=== PATIENT | female | born 1950 | race Caucasian/White ===

== ENCOUNTER 2019-12-31 07:12 | Outpatient (NON) | payer MEDICARE, OTHER, SELFPAY ==
[2019-12-31 23:09] LABS: SARS-CoV-2 RNA PCR Negative
== END 2019-12-31 07:13 ==
PROVIDERS: PCP Family Medicine; Visit Provider Family Medicine
DX: J02.9 Acute pharyngitis, unspecified (principal); Z20.828 Contact with and (suspected) exposure to other viral communicable diseases
CPT/HCPCS: 87635; C9803; U0003

== ENCOUNTER 2020-02-24 07:28 | Outpatient (NON) | payer MEDICARE, OTHER, SELFPAY ==
[2020-02-24 17:23] LABS: SARS-CoV-2 RNA PCR Negative
== END 2020-02-24 07:29 ==
LOC: ANHCOVIDDT 07:30
PROVIDERS: PCP Family Medicine; Visit Provider Family Medicine
DX: Z20.828 Contact with and (suspected) exposure to other viral communicable diseases (principal); J02.9 Acute pharyngitis, unspecified
CPT/HCPCS: 87635; C9803; U0003

== ENCOUNTER → 2021-05-07 00:43 | Outpatient (CLI) | payer MEDICARE, OTHER, SELFPAY ==
[2021-05-08 10:57] LABS: SARS-CoV-2 RNA PCR Negative
== END ==
PROVIDERS: PCP Family Medicine; Visit Provider Family Medicine
DX: R68.89 Other general symptoms and signs (principal); Z20.822 Contact with and (suspected) exposure to COVID-19
CPT/HCPCS: C9803; U0003; U0005

== ENCOUNTER 2021-07-05 17:09 | Emergency (ER) | payer MEDICARE, OTHER, SELFPAY ==
--- NOTE | ~2021-07-05 | XR_ITS ---
[id number]_CR DATE: 07/05/2021 17:48 INDICATION: Fall 5 days ago. Right rib pain TECHNIQUE: PA chest. 3 views of right ribs. COMPARISON: None FINDINGS: Normal heart size. Is aortic arch calcification. No hilar or mediastinal enlargement. No pu lmonary infiltrate or consolidation, pleural effusion or pulmonary vascular congestion or pneumothora x. Old fracture deformity at the proximal left humerus. Diffuse osteopenia. Degenerative change at the a cromioclavicular joints. Osteoarthritic change at the glenohumeral joints. Scoliosis and degenerative change of the thoracic spine. No displaced right rib fractures evident. No bone destruction is noted. IMPRESSION: No displaced rib fractures are noted. Diffuse osteopenia No active cardiopulmonary disease Reviewed, dictated and finalized at Location [facility]. Reviewed, dictated and finalized at location A.
[2021-07-05 17:22] VITALS: BP 118/68; PULSE 97; RESP 24; TEMP 36.6; O2SAT 98
--- NOTE | 2021-07-05 17:22 | ED.BACK ---
HPI - Back Pain/Injury General Chief Complaint: Back Pain/Injury Stated Complaint: Back and Side Pain Due to Fall Time Seen by Provider: 07/05/21 17:22 Source: patient Mode of arrival: ambulatory Limitations: no limitations History of Present Illness HPI Narrative: 71-year-old female presented for complaint of right sided chest, rib, and scapular pain after injury 5 days ago. She states she tripped in a parking lot and landed on the right side. Has had intermittent right sided pain since then. Pain is described as sharp and tender, worse with taking deep breaths and any movements. 0 pain at rest. Taking meloxicam, Tylenol, and Voltaren gel. Denies LOC. Denies cp, sob, hemoptysis, palpitations, dizziness, n/v/d. Hx cholecystectomy, appendectomy, hysterectomy 2/2 cancer. Related Data Home Medications Medication Instructions Recorded Confirmed calcium carbonate 500 mg calcium 500 mg PO DAILY 03/03/19 10/31/20 (1,250 mg) tablet cyanocobalamin (vitamin B-12) 1,000 mcg PO DAILY 03/03/19 10/31/20 1,000 mcg capsule metoprolol succinate 25 mg 25 mg PO DAILY 03/03/19 10/31/20 tablet,extended release 24 hr multivitamin 1 tablet PO DAILY 03/03/19 10/31/20 cholecalciferol (vitamin D3) 25 2,000 unit PO DAILY cap 11/16/19 10/31/20 mcg (1,000 unit) capsule meloxicam 15 mg PO DAILY PRN 07/05/21 07/05/21 Allergies Allergy/AdvReac Type Severity Reaction Status Date / Time No Known Allergies Allergy Verified 07/05/21 17:12 Review of Systems Review of Systems: CONSTITUTIONAL: Denies body aches, fever, chills, or sweats. EYES: Denies visual changes, redness, or discharge. ENT: Denies rhinorrhea, congestion, sore throat, or otalgia. CARDIOVASCULAR: Denies chest pain, palpitations, or edema. RESPIRATORY: Denies cough or dyspnea. GASTROINTESTINAL: Denies abdominal pain, nausea, vomiting, or diarrhea. GENITOURINARY: Denies dysuria or hematuria. SKIN: Denies rash, itching, or wounds. MUSCULOSKELETAL: Reports right side/back pain NEUROLOGIC: Denies headache, numbness, tingling, or weakness. PSYCH: Denies depression or anxiety. All systems reviewed & are unremarkable except as noted in HPI and below PMFSH Past Medical History Medical History Abdominal pain Candidiasis of breast Chronic anxiety Chronic depression Chronic low back pain without sciatica Eczema Encounter for screening for other viral diseases Exposure to COVID-19 virus Fibromyalgia Morbid obesity with BMI of 45.0-49.9, adult Pruritus Seasonal allergic rhinitis Sore throat COVID test 05/07/2021 was negative Tremor Family History Family History Sibling Cerebrovascular accident, Onset Age: 62 Father Family history of heart disease in male family member before age 55 Family history of cardiovascular disease, Onset Age: 85 Mother Family history of chronic obstructive pulmonary disease, Onset Age: 84 Other Family history of arthritis Family history of diabetes mellitus in first degree relative Family history of malignant neoplasm Social History Social History Smoking status: Never smoker Alcohol intake: never Comments At time of signature, I have reviewed and agree with nursing past medical, surgical, social and family history unless otherwise noted. Please see nursing chart for further information. There is no relevant family history pertinent to the presenting complaint Exam Narrative: GENERAL: appears in pain with ambulation, in no acute distress. HEAD: Normocephalic, atraumatic. EYES: EOMI. No redness or drainage. Conjunctivae normal. ENT: Mucous membranes pink and moist. No rhinorrhea. TMs normal bilaterally. Throat normal. Uvula midline. NECK: Normal AROM. Supple. No lymphadenopathy. CHEST: No respiratory distress. Lety
[2021-07-05 17:31] VITALS: BP 118/68; PULSE 97; RESP 24; TEMP 36.6; O2SAT 98
== END 2021-07-05 18:32 | disposition home or self-care (01) ==
PROVIDERS: Emergency Provider Nurse Practitioner Family; PCP Family Medicine
DX: R07.89 Other chest pain (principal); R07.81 Pleurodynia; M25.511 Pain in right shoulder; M54.9 Dorsalgia, unspecified; M79.7 Fibromyalgia; E66.01 Morbid (severe) obesity due to excess calories; Z68.41 Body mass index [BMI] 40.0-44.9, adult; Z85.43 Personal history of malignant neoplasm of ovary
CPT/HCPCS: 71101; 99213; G0463

== ENCOUNTER 2022-09-19 14:18 | Outpatient (CLI) | payer MEDICARE, OTHER, SELFPAY ==
--- NOTE | ~2022-09-19 | MM_ITS ---
EXAMINATION: MM screening argelia BI w joseph HISTORY: Screening mammogram TECHNIQUE: Craniocaudal and mediolateral oblique 3-D tomosynthesis images were obtained and synthetic bilateral rotated lateral CC views. 2-D images were generated. CAD analysis was submitted and interp reted. COMPARISON: 01/09/2011 bilateral screening mammogram BREAST PARENCHYMAL COMPOSITION: FINDINGS: Scattered bilateral benign calcifications. There is no evidence of suspicious mass, calcifi cation, or architectural distortion to suggest malignancy in either breast. There has been no suspici ous interval change. IMPRESSION: 1. No mammographic evidence of malignancy. 2. Recommend routine screening mammography in one year. BI-RADS Category 2: Benign finding(s). Reviewed, dictated and finalized at location A.
== END 2022-09-19 14:19 | disposition home or self-care (01) ==
PROVIDERS: PCP Family Medicine; Visit Provider Family Medicine
DX: Z12.31 Encounter for screening mammogram for malignant neoplasm of breast (principal)
CPT/HCPCS: 77063; 77067

== ENCOUNTER 2023-01-24 08:52 | Emergency (ER) | payer MEDICARE, OTHER, SELFPAY ==
--- NOTE | ~2023-01-24 | XR_ITS ---
XR ankle RT min 3V DATE: 01/24/2023 09:15 INDICATION: Injury this morning. Ankle pain. TECHNIQUE: 4 views COMPARISON: None FINDINGS: There is a linear oblique fracture of the lateral malleolus with one cortical width lateral displacement. No other fracture or dislocation of the ankle or disruption of the ankle mortise is detected. Diffuse osteopenia. There is extensive soft tissue calcification along the distal Achilles tendon and prominent plantar a nd posterior calcaneal enthesopathy. There is prominent calcification of the anterior and particularl y posterior tibial arteries. There is soft tissue calcifications of the lower leg. IMPRESSION: 1 cortical width lateral displacement of linear oblique fracture of lateral malleolus Reviewed, dictated and finalized at location [facility].
--- NOTE | 2023-01-24 08:54 | ED.GENADULT ---
HPI - General Adult General Chief complaint: Extremity Injury, Lower Stated complaint: Rt Ankle Pain Time Seen by Provider: 01/24/23 09:10 Source: patient, RN notes reviewed and old records reviewed Mode of arrival: ambulatory Limitations: no limitations History of Present Illness HPI narrative: 72-year-old female presents to the [facility] with complaints right ankle pain. Patient reports that her dog leash got wrapped around her ankle this morning. Unable to bear weight. Swelling noted lateral malleolus. Positive pedal pulse. Sensation intact in all 5 toes, capillary refill under 2 sec Denies falling. No hitting head. Onset (ago): hour(s) Related Data Home Medications Medication Instructions Recorded Confirmed calcium carbonate 500 mg calcium 500 mg PO DAILY 03/03/19 01/24/23 (1,250 mg) tablet metoprolol succinate 25 mg 25 mg PO DAILY 03/03/19 01/24/23 tablet,extended release 24 hr multivitamin 1 tablet PO DAILY 03/03/19 01/24/23 cholecalciferol (vitamin D3) 25 2,000 unit PO DAILY 11/16/19 01/24/23 mcg (1,000 unit) capsule cyanocobalamin (vitamin B-12) 500 mcg PO DAILY 12/05/22 01/24/23 1,000 mcg capsule secukinumab 150 mg/mL subcutaneous 150 mg subcut WEEKLY 01/24/23 01/24/23 pen injector (Cosentyx Pen) Allergies Allergy/AdvReac Type Severity Reaction Status Date / Time No Known Allergies Allergy Verified 01/24/23 08:58 Review of Systems Review of Systems: All systems reviewed & are unremarkable except as noted in HPI and below Constitutional: Constitutional: Reports no additional constitutional complaints Eyes: Eyes: Reports no additional eye complaints ENT: Reports system reviewed and no additional complaints, except as documented Cardiovascular: Cardiovascular: Reports no additional cardiovascular complaints, Denies chest pain and Denies dyspnea Respiratory: Respiratory: Reports no additional respiratory complaints, Denies chest congestion, Denies cough and Denies dyspnea Gastrointestinal: Gastrointestinal: Reports no additional gastrointestinal complaints, Denies abdominal pain, Denies nausea and Denies vomiting Musculoskeletal: Musculoskeletal: Reports as per HPI and Reports arthralgias Integumentary/Breasts: Skin/Breast: Reports system reviewed and no additional complaints, except as docu Neurologic: Reports system reviewed and no additional complaints, except as documented Psychiatric: Psychiatric: Reports no additional psychiatric complaints Allergic/Immunologic: Allergic/Immunologic: Reports no additional allergic/immunologic complaints [facility] Past Medical History Medical History Abdominal pain Abnormal fasting glucose (10/01/21) fasting glucose 102 on 10/01/2021. Acute non-recurrent maxillary sinusitis At high risk for falls BMI 38.0-38.9,adult Candidiasis of breast Chronic anxiety Chronic depression Chronic low back pain without sciatica Chronic pain in left shoulder COVID-19 (03/15/22) tested positive 03/18/2022. Eczema Encounter for screening for other viral diseases Exposure to COVID-19 virus Fibromyalgia Morbid obesity with BMI of 40.0-44.9, adult Morbid obesity with BMI of 45.0-49.9, adult Obesity (BMI 30-39.9) Pruritus Screening for breast cancer Seasonal allergic rhinitis Sore throat COVID test 05/07/2021 was negative Tremor Type 2 diabetes mellitus with hyperglycemia Family History Family History Sibling Cerebrovascular accident, Onset Age: 62 Father Family history of heart disease in male family member before age 55 Family history of cardiovascular disease, Onset Age: 85 Mother Family history of chronic obstructive pulmonary disease, Onset Age: 84 Other Family history of arthritis Family history of diabetes mellitus in first degree relative Family history of malignant neoplasm Social History
[2023-01-24 09:04] VITALS: BP 108/63; PULSE 100; RESP 18; TEMP 36.3; O2SAT 99
== END 2023-01-24 09:47 | disposition home or self-care (01) ==
PROVIDERS: Emergency Provider Nurse Practitioner; PCP Family Medicine
DX: S82.61XA Displaced fracture of lateral malleolus of right fibula, initial encounter for closed fracture (principal); T14.90XA Injury, unspecified, initial encounter; F41.8 Other specified anxiety disorders; E66.01 Morbid (severe) obesity due to excess calories; Z68.36 Body mass index [BMI] 36.0-36.9, adult; E11.9 Type 2 diabetes mellitus without complications
CPT/HCPCS: 29515; 73610; 99214; G0463

== ENCOUNTER 2024-12-21 10:02 | Outpatient (CLI) | payer MEDICARE, OTHER, SELFPAY ==
--- OUTSIDE RECORDS SUMMARY | 2022-02-01 07:30 | XMS_ITS | Continuity of Care Document ---
Author Organization [facility] Address [address] [place] [address] Phone Care Team Providers Care Boring Machine Operator Production Name Role Phone Omkar DENG, [place] Unavailable Unavailabl e Allergies, Adverse Reactions, Alerts Substance Reaction Status Criticality No Known Allergies Active No Inform ation Procedures Procedure Date IMMUNIZATION ADMIN FLU VACC PRSV FREE INC ANTIG IMMUNIZATION ADMIN FLU VAC NO PRSV 4 VANE 3 YRS+ IMMUNIZATION ADMIN FLU VAC NO PRSV 4 VANE 3 YRS+ OFFICE/OUTPATIENT VISIT EST FLU VAC NO PRSV 4 VANE 3 YRS+ IMMUNIZATION ADMIN IMMUNIZATION ADMIN FLU VAC NO PRSV 4 VANE 3 YRS+ IMMUNIZATION ADMIN FLU VAC NO PRSV 4 VANE 3 YRS+ Advance Directives Directive Yes / No Effective Date File Name No Information Encounters Encounter Description Practice Location Reason(s) For Visit Diagnoses Date Provider Providers Copied on Encounter [facility], [address], [place], [address], [place] tel:[phone] [facility] No Information 2 Omkar Reynoso. [address], [place], [place], [id number]. tel:[phone] [facility], [address], [place], [address], [place] tel:[phone] [facility] No Information 0 Omkar Hamsa. [address], [place], [place], [id number]. tel:[phone] OFFICE/OUTPAT IENT VISIT EST [facility], [address], [place], [address], [place] tel:[phone] [facility] flu shot (chief complaint) Encounter for immunization 9 Omkar Hamsa. [address], [place], [place], [id number]. tel:[phone] [facility], [address], [place], [address], [place] tel:[phone] [facility] No Information 8 Omkar Hamsa. [address], [place], [place], [id number]. tel:[phone] [facility], [address], [place], [address], [place] tel:[phone] [facility] Encounter for immunization 7 Omkar Hamsa. [address], [place], [place], [id number]. tel:[phone] [facility], [address], [place], [address], [place] tel:[phone] [facility] No Information 6 Omkar Hamsa. [address], [place], [place], [id number]. tel:[phone] Family History Family Member Type Diagnosis Age At Onset No Information Immunizations Vaccine Date Status Comments Influenza, quadrivalent, hig h dose, injectable, split virus, preservative free, 0.7 mL dose, Fluzone High-Dose Quad administered Source: New Immuniza tion Record Influenza, injectable, quadrivalent, preservative free, 3 yrs or older administered Source: New Immuniz ation Record Influenza, injectable, quadrivalent, preservative free, 3 yrs or older administered Source: New Immuniz ation Record Influenza, injectable, quadrivalent, preservative free, 3 yrs or older administered Source: New Immuniz ation Record Influenza, injectable, quadrivalent, preservative free, 3 yrs or older administered Source: New Immuniz ation Record Influenza, injectable, quadrivalent, preservative free, 3 yrs or older administered Source: New Immuniz ation Record Payers Payer name Insurance type Covered republican ID Authoriza tion(s) Medicare E2 OT [id number] Medicare E2 OT [id number] Medicare E2 OT [id number] [facility] < [id number] OT [id number] Social History Type Description Quantity Date Captured Comments Sex Female Smoking Status No Information Chief Complaint And Reason For Visit No Information Reason For Referral Reason For Referral No Information History Of Present Illness Encounter Date Complaint History Of Prese nt Illness flu shot no new medical i ssues, no new meds, she is doing well and is here for her Flu shot Functional Status Date Functional Assessmen t No Information Instructions Date Instruction Additional Infor mation No Information Assessments Type Assessment Date No Information Patient Care Teams Name Effective Dates (start - stop) Status Members No Information
--- OUTSIDE RECORDS SUMMARY | 2024-08-12 07:54 | XMS_ITS | Continuity of Care Document ---
Author Name [facility] Organization [facility] Care Team Providers Care Social Director Name Role Phone [facility] Unavailable Unavailable Problems Combined list of problems from Department of Defense and [facility] facilities. It does not include entries that were removed or entered in error. Problem Status Onset Date Problem Type Date of Resolution Comments Source Diagnosis: ICD-10-CM Z63.79 Other stressful life events affecting family and household Active Diagnosis [facility] Encounters Combined list of: 1) Encounters from Department of Veterans Affairs facilities going backup to the last 18 months, not all [place] inpatient encounters are included; 2) Encounters from the Department of [facility] facilities going backup to 280 months. Location Location Details Encounter Type Encounter Number Reason For Visit Attending Provider ADM Date DC Date Status Disposition Source [facility] PT EDUCATION NOC INDIVID [id number] Diagnos is: ICD-10- CM Z63.79 Other stressf ul life events affecti ng family and househo ld TRAV SHAH 07/22 [facility] Outpatient Encounter [id number] FEMI COHEN 08/12 [facility] N
--- NOTE | 2024-12-21 10:20 | NEURO_ITS ---
Impression: # History of diabetes and cancer with chemotherapy. ? # Very mild bilateral Carpal Tunnel Syndrome. ? # Right Ulnar Neuropathy across the elbow. ? # Normal Needle/ EMG exam. Nerve Conduction Studies ?Stim Site NR Peak (ms) P-T Amp (?V) Site1 Site2 Delta-P (ms) Dist (cm) Michael (m/s) Left Median Anti Sensory (2-3nd Digit) Wrist ? 3.8 21.6 Wrist 2-3nd Digit 3.8 14.0 37 Wrist ? 3.6 21.4 Wrist 2-3nd Digit 3.8 14.0 37 Right Median Anti Sensory (2-3nd Digit) Wrist ? 4.0 18.2 Wrist 2-3nd Digit 4.0 14.0 35 Wrist ? 4.1 16.8 Wrist 2-3nd Digit 4.0 14.0 35 Left Radial Anti Sensory (Base 1st Digit) Wrist ? 2.1 13.2 Wrist Base 1st Digit 2.1 0.0 Right Radial Anti Sensory (Base 1st Digit) Wrist ? 2.6 11.9 Wrist Base 1st Digit 2.6 0.0 Left Ulnar Anti Sensory (5th Digit) Wrist ? 3.0 17.2 Wrist 5th Digit 3.0 14.0 47 Right Ulnar Anti Sensory (5th Digit) Wrist ? 3.0 16.2 Wrist 5th Digit 3.0 14.0 47 ?Stim Site NR Onset (ms) O-P Amp (mV) Site1 Site2 Delta-0 (ms) Dist (cm) Michael (m/s) Left Median Motor (Abd Poll Brev) Wrist ? 3.4 4.5 Elbow Wrist 4.6 27.0 59 Elbow ? 8.0 4.5 Right Median Motor (Abd Poll Brev) Wrist ? 4.3 3.4 Elbow Wrist 5.7 30.0 53 Elbow ? 10.0 3.7 Left Ulnar Motor (Abd Dig Minimi) Wrist ? 3.3 4.5 A Elbow Wrist 5.1 27.0 53 A Elbow ? 8.4 3.9 B Elbow Wrist 4.2 21.0 50 B Elbow ? 7.5 3.8 Right Ulnar Motor (Abd Dig Minimi) Wrist ? 3.0 4.2 A Elbow Wrist 6.1 28.0 46 A Elbow ? 9.1 4.1 B Elbow Wrist 4.1 19.0 46 B Elbow ? 7.1 3.0 F Wave Studies ?NR F-Lat (ms) L-R F-Lat (ms) Left Median (Mrkrs) (Abd Poll Brev) ? 26.08 3.59 Right Median (Mrkrs) (Abd Poll Brev) ? 29.67 3.59 Left Ulnar (Mrkrs) (Abd Dig Min) ? 28.36 0.55 Right Ulnar (Mrkrs) (Abd Dig Min) ? 28.91 0.55 Electromyography ?Side Muscle Nerve Root Ins Act Fibs Amp Dur Recrt Comment Right 1stDorInt Ulnar C8-T1 Nml Nml Nml Nml Nml Right Ext Indicis Radial (Post Int) C7-8 Nml Nml Nml Nml Nml Right Ext Digitorum Radial (Post Int) C7-8 Nml Nml Nml Nml Nml Right BrachioRad Radial C5-6 Nml Nml Nml Nml Nml Right PronatorTeres Median C6-7 Nml Nml Nml Nml Nml Right Abd Poll Brev Median C8-T1 Nml Nml Nml Nml Nml Right ABD Dig Min Ulnar C8-T1 Nml Nml Nml Nml Nml Right FlexPolLong Median (Ant Int) C7-8 Nml Nml Nml Nml Nml Right Abd Poll Long Radial (Post Int) C7-8 Nml Nml Nml Nml Nml Left 1stDorInt Ulnar C8-T1 Nml Nml Nml Nml Nml Left Ext Indicis Radial (Post Int) C7-8 Nml Nml Nml Nml Nml Left Ext Digitorum Radial (Post Int) C7-8 Nml Nml Nml Nml Nml Left BrachioRad Radial C5-6 Nml Nml Nml Nml Nml Left PronatorTeres Median C6-7 Nml Nml Nml Nml Nml Left Abd Poll Brev Median C8-T1 Nml Nml Nml Nml Nml Left ABD Dig Min Ulnar C8-T1 Nml Nml Nml Nml Nml Left FlexPolLong Median (Ant Int) C7-8 Nml Nml Nml Nml Nml Left Abd Poll Long Radial (Post Int) C7-8 Nml Nml Nml Nml Nml
--- OUTSIDE RECORDS SUMMARY | 2024-12-21 10:33 | XMS_ITS | Clinical Summary ---
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 Gender Identity Not on file Sexual Orientation Not on file Plan of Treatment Health Maintenance Due Date Last Done Comments Colorectal Cancer Screening Colonoscopy (10 Years) 1950 Hepatitis C 1968 DTaP, Tdap and Td Vaccines ( 1 - Tdap) 1969 Mammogram Screening 1990 Pneumococcal Vaccine: 50+ Ye ars (1 of 1 - PCV) 2000 Zoster Vaccines (1 of 2) 2000 Dexa Scan (General) 2015 COVID-19 Vaccine (2023-2 5 season) 2023 RSV Immunization or 60+ Years (1 - 1-dose 75+ series) 2025 Meningococcal B Vaccine Aged Out No l onger eligible based on patient's age to complete this topic Meningococcal Vaccine Aged Out No clover alf eligible based on patient's age to complete this topic RSV Immunizations Under 20 Months Aged Out No longer eligible based on patient's age to complete this topic
--- OUTSIDE RECORDS SUMMARY | 2024-12-21 10:33 | XMS_ITS | Clinical Summary ---
Author Organization [facility] Address [address] [place] [address] Care Team Providers Care Welding Teacher Name Role Phone Arthur Wei MD Primary Care Provider [phone] [phone] Allergies No known active allergies Medications multivitamin tablet tablet take 1 Tablet by oral route every day with food 0 0 6 Active cetirizine (ZyrTEC) 10 mg tablet take 1 tablet by oral route every day 0 0 6 Active cholecalciferol (VITAMIN D-3) 2,000 unit tablet Take 1 tablet (2,000 Units total) by mouth daily. 90 tablet 3 7 Active calcium carbonate-vitamin D2 500 mg(1,250mg) -200 unit tablet Take 4 tablets (2,000 mg total) by mouth 1200 mg tablet Pt taking 4 tablets daily Active diclofenac sodium (VOLTAREN) 1 % gel Apply topically 4 (four) times a day. Apply to knees and right wrist 100 g 11 8 Active cyanocobalamin (Vitamin B-12) 1,000 mcg sublingual tablet Take 0.5 tablets (500 mcg total) by mouth daily Active clobetasol (TEMOVATE) 0.05 % cream Apply topically 2 (two) times a day as needed (rash). Right 3rd knuckle and palm-psoriasis 30 g 1 9 Active clotrimazole 1 % cream APPLY TOPICALLY TO THE AFFECTED AREA TWICE DAILY 60 g 9 Active citalopram (CeleXA) 40 mg tablet TAKE 1 TABLET(40 MG) BY MOUTH DAILY 90 tablet 1 9 Active OneTouch Verio test strips strip USE EVERY DAY 3 Active OneTouch Verio Reflect Meter misc daily [address] (CYMBALTA) 60 mg capsule TAKE 1 CAPSULE BY MOUTH DAILY. CONTINUE CITALOPRAM 40 MG DAILY ALSO 3 Active OneTouch Delica Plus Lancet 30 gauge misc USE EVERY DAY 3 Active Ozempic 1 mg/dose (4 mg/3 mL) pen injector injection INJECT 1MG UNDER THE SKIN ONCE A WEEK 3 Active meloxicam (MOBIC) 15 mg tablet Take 1 tablet (15 mg total) by mouth daily as needed for pain 30 tablet 3 Active secukinumab (Cosentyx Pen) pen injector INJECT 150MG( 1 ML) UNDER THE SKIN EVERY 28 DAYS 1 mL 1 3 Active Additional Information Patient not taking.Reported on 05/24/2024 [facility] triamcinolone acetonide (/PROT ECT) topical lotion apply to affected area by external route 2 times a day hand External 2 for 30 8 Active Ozempic 2 mg/dose (8 mg/3 mL) pen injector injection 0.75 mL (2 mg total) 4 Active metoprolol XL (TOPROL-XL) 25 mg extended release tablet TAKE 1 TABLET(25 MG) BY MOUTH DAILY 90 tablet 3 5 Active Active Problems Problem Noted Date Diagnosed Date Sinus tachycardia 12/16/2019 Assessment & Plan (12/16/2019 10:43 AM CDT): Sinus tachycardia of uncertain cause. Will obtain a CBC, BMP, and proBNP. I advised her to follow up with Dr. Wei regarding this. Will forward results to T3 low in serum 08/18/2018 Assessment & Plan (08/18/2018 10:18 AM CDT): Recheck levels of t3. Acute sinusitis 08/18/2018 Assessment & Plan (08/18/2018 10:18 AM CDT): Rest, fluids, amoxcillin, Weight gain, abnormal 08/18/2018 Assessment & Plan (08/18/2018 10:30 AM CDT): Will recheck thyroid levels today- a prior visit with Cardiology TSH was normal T3 was slightly low. Encouraged patient to exercise and to low-carbohydrate diet Palpitations 07/17/2018 Assessment & Plan (08/18/2018 10:18 AM CDT): Stable will remain under the care of Dr. Cruz Assessment & Plan (07/17/2018 6:18 PM CDT): Palpitations are improved, and may have been mediated by stress. I am reluctant to increase her metoprolol unless this is an ongoing problem, in which case I would likely increased only to 37.5 mg daily to avoid hypotension. In the meantime, will obtain a CBC, TSH, and T4 to be sure that anemia and or thyroid abnormality are not contributing to her symptoms. High risk medication use 01/19/2018 Medicare annual wellness visit, subsequent 08/28 Assessment & Plan (08/28/2017 5:38 PM CDT): Patient here for annual Medicare wellness visit and for review of complete medical problem list. The patient has no cognitive or memory impairment. All the elements of the plan were completed as outlined by CMS. A copy of the prevention plan was given to the patient. I reviewed Medicare wellness questionnaire (other physicians involved in care, depression screen, advance directives), cognitive/memory, and functional assessment. And in [facility] progress notes. Reviewed and updated the complete problem list, medication list, family history, and immunization records with the patient. I provided preventive counseling and early detection interventions to the patient through health maintenance update and summary of today's visit. Sore throat 08/28/2017 Assessment & Plan (08/28/2017 5:39 PM CDT): Rapid strep test is negative. Suspect this is viral in etiology. Discussed local measures Exposure to hepatitis C 08/28/2017 Joint swelling 03/03/2017 Psoriatic arthritis 02/17/2017 Assessment & Plan (08/28/2017 5:38 PM CDT): Continue current medications as directed. Call if problems with medications. Psoriasis 02/17/2017 Assessment & Plan (02/17/2017 9:14 PM CDT): This is worsening- start hydrocortisone cream and follow up with dermatology in 1 month to start biologic agent RBBB 01/13/2017 Assessment & Plan (05/23/2024 4:02 PM CLINICAL REHAB SPECIALIST): Stable finding which does not require intervention at this time Assessment & Plan (05/19/2023 12:20 PM CLINICAL REHAB SPECIALIST): Stable finding which does not require intervention at this time Assessment & Plan (02/19/2022 3:44 PM CDT): Stable finding which does not require intervention at this time Assessment & Plan (12/15/2020 10:29 AM CDT): Previously assessed and found to be nonischemic. Assessment & Plan (12/16/2019 10:46 AM CDT): Longstanding right bundle branch block. Assessment & Plan (07/17/2018 6:18 PM CDT): Longstanding and nonischemic. Anxiety 10/14/2016 Assessment & Plan (02/17/2017 9:12 PM CDT): Intolerant of citalopram 40 mg per day, will reduce to 20 mg per day Assessment & Plan (10/14/2016 6:16 PM CDT): Dr. Newton in room to me patient and review of plan completed with physician will continue Xanax as needed and also increase her citalopram to 40 mg she will return if symptoms do not improve she is set up for physical with Dr. newton Morbid obesity with BMI of 40.0-44.9, adult /09/2016 Assessment & Plan (12/15/2020 10:30 AM CDT): Needs to lose weight through diet and exercise. Assessment & Plan (08/18/2018 10:17 AM CDT): BMI Follow-up includes: education provided. Assessment & Plan (08/28/2017 5:38 PM CDT): Reviewed diet, decrease calorie intake, decrease portion size, avoid snacking and exercise most days of the week with regular walking. Assessment & Plan (02/17/2017 9:12 PM CDT): Reviewed diet- decrease caloric intake, decrease portion size, avoid snacking, and exercise most days of the week with regular walking as tolerated. Morbid obesity 10/14/2016 Assessment & Plan (07/17/2018 6:19 PM CDT): Weight loss through diet and exercise recommended. Assessment & Plan (08/28/2017 5:38 PM CDT): Reviewed diet, decrease calorie intake, decrease portion size, avoid snacking and exercise most days of the week with regular walking. Assessment & Plan (02/17/2017 9:13 PM CDT): Reviewed diet- decrease caloric intake, decrease portion size, avoid snacking, and exercise most days of the week with regular walking as tolerated. Assessment & Plan (01/14/2017 10:54 AM CDT): Weight loss through diet and exercise recommended. Assessment & Plan (10/14/2016 6:14 PM CDT): Patient counseled on weight Vitamin D deficiency 10/14/2016 Assessment & Plan (02/17/2017 9:15 PM CDT): Continue current medications and call if problems or side effects. Assessment & Plan (10/14/2016 6:13 PM CDT): Will check level today patient will continue on [id number] medications Candidal intertrigo 10/14/2016 Assessment & Plan (08/28/2017 5:40 PM CDT): Refilled clotrimazole cream. If no better may need a trial of fluconazole Assessment & Plan (10/14/2016 6:13 PM CDT): Clorrtiamazole for periodically stone fraction in groin area and under breast PAC (premature atrial contraction) 10/14/2016 Assessment & Plan (05/24/2024 10:52 AM CLINICAL REHAB SPECIALIST): She is doing well with controlled symptoms on low-dose metoprolol which we will continue - cont metop 12.5 XL daily Assessment & Plan (05/19/2023 12:20 PM CLINICAL REHAB SPECIALIST): She was doing well with controlled symptoms on low-dose metoprolol which we will continue - cont metop 25 XL daily Assessment & Plan (02/19/2022 3:44 PM CDT): She was doing well with controlled symptoms on low-dose metoprolol which we will continue Assessment & Plan (12/15/2020 10:29 AM CDT): Asymptomatic on low-dose metoprolol which she tolerates well. Continue metoprolol. Assessment & Plan (12/16/2019 10:45 AM CDT): Not present currently. Assessment & Plan (12/14/2018 10:53 AM CDT): Asymptomatic on metoprolol, which should be continued. Assessment & Plan (02/17/2017 9:12 PM CDT): Continue current medications and call if problems or side effects. Assessment & Plan (01/14/2017 10:53 AM CDT): Asymptomatic on beta-willian therapy which will be continued. Assessment & Plan (10/14/2016 6:15 PM CDT): Patient remains on the watchful care of Cardiology stable at this time Vitamin B12 deficiency 10/14/2016 Assessment & Plan (02/17/2017 9:15 PM CDT): Continue current medications and call if problems or side effects. Screening cholesterol level 10/14/2016 Assessment & Plan (10/14/2016 6:14 PM CDT): Recheck lipids today Fatigue 10/14/2016 Assessment & Plan (08/28/2017 5:38 PM CDT): Check CBC and TSH Assessment & Plan (10/14/2016 6:14 PM CDT): Recent blood work reviewed in Clinical desktop completed by Rheumatology due to fatigue will check TSH level today Bilateral chronic knee pain 02/13/2016 Closed fracture of proximal end of humerus 08/01 Osteoarthritis 03/06/2011 Assessment & Plan (02/17/2017 9:13 PM CDT): This is worsening. Continue current medications, followup with ortho for synvasc injections Assessment & Plan (10/14/2016 6:14 PM CDT): Stable chronic is being followed by Rheumatology at [facility] Encounters Date Type Department Care Team Description 12/15/2024 Telephone [facility] Medicine Scheduling [facility] [place] [address] Marycarmen Krause V. 09/22/2024 9:15 AM CDT Telemedicine [facility] Cancer Genetics Department [address] [place] [address] Erika Bello MS from Last 3 Months Immunizations Immunization Administration Dates Next Due Influenza, Unspecified 03/27/2018,02/10/2017 Surgical History Surgery Date Site/Laterality Comments GASTRIC BYPASS 04/21/2004 - 04/20/2005 CHOLECYSTECTOMY 04/21/2004 - 04/20/2005 HYSTERECTOMY 04/21/1984 - 04/20/1985 for ovarian cancer- s/p TAHBSO and chemotherapy Medical History Medical History Date Comments Arthritis Arthritis; Comme nts: [facility] 08/10/2014 - Malignant neoplasm of ovary Canc er, ovarian; Comments: [facility] 08/10/2014 - Hx Other Medical 2005 Gastric Bypass; Comments: [facility] 08/10/2014 - Arm fracture, left 05/2015 treated with a sling Arm fracture 11/21/2017 right arm fractu re Heart murmur Eczema Depression Tremor Fibromyalgia Diabetes mellitus (HCC) Vitamin B 12 deficiency Allergic rhinitis Low back pain with siatica Vascular abnormality 01/24/2023 bilateral l egs Family History Medical History Relation Name Comments Stroke Brother Stroke; Diabetes Daughter Diabetes mellit us; Arthritis Father Family history of arthritis - (Added by TW Conv) Heart attack Father Myocardial infa rction; Cause of : Myocardial infarction Heart disease Father Family history of cardiac disorder - (Added by TW Conv) Lung disease Father Family history of lung disease - (Added by TW Conv) Melanoma Maternal Grandfather of the eye Breast cancer Maternal cousin Lung disease Mother Family history of lung disease - (Added by TW Conv) Breast cancer Mother's Sister Ovarian cancer Sister Relation Name Status Comments Brother Daughter Father Maternal Grandfather Maternal cousin Alive Mother Mother's Sister Sister Social History Tobacco Use Types Packs/Day Years Used Date Smoking Tobacco: Never Passive Smoke Exposure: Past Smokeless Tobacco: Never Alcohol Use Standard Drinks/Week Comments No 0 (1 standard drink = 0.6 oz pur e alcohol) PHQ-2 Answer Date Recorded PHQ-2 Score 0 12/12/2018 Comments Unknown Sex and Gender Information Value Date Recorded Sex Assigned at Not on file Legal Sex Female 3:32 AM CLINICAL REHAB SPECIALIST Gender Identity Not on file Sexual Orientation Not on file Obstetrics History Last Filed Vital Signs Vital Sign Reading Time Taken Comments Blood Pressure 99/60 05/24/2024 10:39 AM CLINICAL REHAB SPECIALIST Pulse 87 05/24/2024 10:39 AM CLINICAL REHAB SPECIALIST Temperature 36.3 C (97.4 F) 03/19/2023 9:25 AM CLINICAL REHAB SPECIALIST Respiratory Rate 14 08/18/2018 10:0 0 AM CDT Oxygen Saturation 99% 05/24/2024 10: 39 AM CLINICAL REHAB SPECIALIST Inhaled Oxygen Concentration - - Weight 88.4 kg (194 lb 12.8 oz) 025 10:39 AM CLINICAL REHAB SPECIALIST Height 165.1 cm (5' 5) 05/24/2024 10:3 9 AM CLINICAL REHAB SPECIALIST Body Mass Index 32.42 05/24/2024 10:39 AM CLINICAL REHAB SPECIALIST Plan of Treatment Health Maintenance Due Date Last Done Comments Osteoporosis Screening-Bone Density Scan 1950 DTaP/Tdap/Td Vaccine (1 - Tdap) 1961 Hepatitis B Screening 1968 Pneumococcal vaccine 65+ (1 of 1 - PCV) 2000 Zoster Vaccine (1 of 2) 2000 Breast Cancer Screening-Mammogram 02/17/2014 013 Well Visit 65+ 08/28/2018 08/28/2017 Depression Screening 08/19/2019 08/18/2018, 08/28/2017, 02/17/2017 Fall Risk Assessment 08/19/2019 08/18/2018, 08/29/19 18 Influenza Vaccine (#1) 2024 8, 02/10/2017, 02/06/2017, Additional history exists Colon Cancer Screening-Colonoscopy 02/17/2025 02/17/2015 Colon Cancer Screening-CT Colonography Discontinued 02/17/2015 Colon Cancer Screening-DNA Stool Discontinued 02/18/20 15 Colon Cancer Screening-FIT Discontinued 02/17/2015 Colon Cancer Screening-Sigmoidoscopy Discontinued 02/17/2015 Hepatitis C Screening Completed 12/11/2022, 018 Procedures Procedure Name Priority Date/Time Associated Diagnosis Comments HEPATITIS PANEL, ACUTE Routine 12/11/2022 9:23 AM CDT High risk medication use COLONOSCOPY Routine 02/17/2015 SCREENING MAMMOGRAM 2D BILATERAL Schedule Routine, Read Routine (OP Routine) 02/17/2013 from Last 3 Months or Most Recently Relevant to Health Maintenance Results * Hepatitis panel, acute (12/11/2022 9:23 AM CDT) Hep A IgM Nonreactive [facility] Hep B core IgM Nonreactive Nonreactive [facility] Hep C Ab Nonreactive Nonreactive [facility] Comment:Antibodies to HCV no t detected. Does NOT exclude the possibility of recent exposure to HCV. Current interpretive data was last revised on 21 HepBsAg Nonreactive Nonreactive [facility] Blood 12/11/2022 9:23 AM CDT 12/11/2022 11:45 AM CDT us Norma Patterson NP LAB MICROBIOLOGY - GENERAL ORDERABLES Final Result Performing Organization Address City/State/[facility] Co de Phone Number [facility] Department [place] [address] * Colonoscopy (02/17/2015) Anatomical Region Laterality Modality Other Historical Provider MD ENDOSCOPY PROCEDURES Tammy l Result * Screening Mammogram 2D Bilateral (02/17/2013) Anatomical Region Laterality Modality Breast Bilateral Mammography Historical Provider MD IMG MAMMO PROCEDURES Tammy l Result from Last 3 Months or Most Recently Relevant to Health Maintenance [facility] [employer] OPEN ACCESS MEDICARE [facility] [id number] MEDICARE [facility] [id number] Care Teams Welding Teacher Relationship Specialty Start Date End Date Arthur Wei MD [address] [address] PCP - General Family Medicine 12/16/19
--- OUTSIDE RECORDS SUMMARY | 2024-12-21 10:33 | XMS_ITS | Encounter Summary ---
Author Organization [facility] Address [address] [place] [address] Phone Care Team Providers Care Metal Punch Press Operator Name Role Phone Arthur Wei MD Primary Care Provider [phone] [phone] Encounter Details Date Type Department Care Team (Late st Contact Info) Description 12/15/2024 Telephone [facility] Medicine Scheduling [address] [place] [address] Marycarmen Krause V. Social History Tobacco Use Types Packs/Day Years Used Date Smoking Tobacco: Never Passive Smoke Exposure: Past Smokeless Tobacco: Never Alcohol Use Standard Drinks/Week Comments No 0 (1 standard drink = 0.6 oz pur e alcohol) PHQ-2 Answer Date Recorded PHQ-2 Score 0 12/12/2018 Comments Unknown Sex and Gender Information Value Date Recorded Sex Assigned at Not on file Legal Sex Female 3:32 AM LINESPERSON Gender Identity Not on file Sexual Orientation Not on file documented as of this encounter Miscellaneous Notes * Telephone Encounter - Marycarmen Krause V. - 12/15/2024 3:21 PM CDT Steele: [id number] Cosentyx Sensoready Pen 150MG/ML auto-injectors [employer]:[id number] Status:Approved 12/16/2024-12/16/2025 documented in this encounter Plan of Treatment Not on file documented as of this encounter Visit Diagnoses Not on filedocumented in this encounter Care Teams Metal Punch Press Operator Relationship Specialty Start Date End Date Arthur Wei MD [address] [address] PCP - General Family Medicine 12/16/19 documented as of this encounter
--- OUTSIDE RECORDS SUMMARY | 2024-12-21 10:33 | XMS_ITS | Encounter Summary ---
Author Organization [facility] Address [address] [facility] [place] [address] Phone Care Team Providers Care Utility Supervisor Boat And Plant Name Role Phone Arthur Wei MD Primary Care Provider [phone] [phone] Encounter Details Date Type Department Care Team (Late st Contact Info) Description 11/29/2022 Orders Only [facility] Scanning, Provider Social History Tobacco Use Types Packs/Day Years Used Date Smoking Tobacco: Never Smokeless Tobacco: Never Alcohol Use Standard Drinks/Week Comments No 0 (1 standard drink = 0.6 oz pur e alcohol) PHQ-2 Answer Date Recorded PHQ-2 Score 0 12/12/2018 Comments Unknown Sex and Gender Information Value Date Recorded Sex Assigned at Not on file Legal Sex Female 3:32 AM POWER GENERATION EQUIPMENT REPAIRER Gender Identity Not on file Sexual Orientation Not on file documented as of this encounter Plan of Treatment Not on file documented as of this encounter Procedures Procedure Name Priority Date/Time Associated Diagnosis Comments SCAN - LABS 11/29/2022 documented in this encounter Results * SCAN - LABS (11/29/2022) us Provider Scanning Final Result documented in this encounter Visit Diagnoses Not on filedocumented in this encounter Care Teams Utility Supervisor Boat And Plant Relationship Specialty Start Date End Date Arthur Wei MD [address] [address] PCP - General Family Medicine 12/16/19 documented as of this encounter
--- OUTSIDE RECORDS SUMMARY | 2024-12-21 10:33 | XMS_ITS | Encounter Summary ---
Author Organization [facility] Address [address] [facility] [address] Phone Care Team Providers Care Wastewater Treatment Operator Name Role Phone Arthur Wei MD Primary Care Provider [phone] [phone] Encounter Details Date Type Department Care Team (Latest Contact Info) Description 12/01/2021 Orders Only [facility] Scanning, Provider Social History Tobacco Use Types Packs/Day Years Used Date Smoking Tobacco: Never Smokeless Tobacco: Never Alcohol Use Standard Drinks/Week Comments No 0 (1 standard drink = 0.6 oz pur e alcohol) PHQ-2 Answer Date Recorded PHQ-2 Score 0 12/12/2018 Comments Unknown Sex and Gender Information Value Date Recorded Sex Assigned at Not on file Legal Sex Female 3:32 AM BLADDER CHANGER Gender Identity Not on file Sexual Orientation Not on file documented as of this encounter Plan of Treatment Not on file documented as of this encounter Procedures Procedure Name Priority Date/Time Associated Diagnosis Comments SCAN - LABS 12/01/2021 documented in this encounter Results * SCAN - LABS (12/01/2021) us Provider Scanning Final Result documented in this encounter Visit Diagnoses Not on filedocumented in this encounter Care Teams Wastewater Treatment Operator Relationship Specialty Start Date End Date Arthur Wei MD [address] [place] [address] PCP - General Family Medicine 12/16/19 documented as of this encounter
--- OUTSIDE RECORDS SUMMARY | 2024-12-21 10:33 | XMS_ITS | Encounter Summary ---
Author Organization [facility] Address [address] [place] [address] Care Team Providers Care Aircraft Systems Technician Name Role Phone Unavailable Primary Care Provider Unavailabl e Encounter Details Date Type Department Care Team (Late st Contact Info) Description 09/26/[address] [facility] CONVERSION [address] [place] [address] , Generic Conversion, Social History Tobacco Use Types Packs/Day Years Used Date Smoking Tobacco: Never Assessed Comments Unknown Sex and Gender Information Value Date Recorded Sex Assigned at Not on file Legal Sex Female 10:22 PM LAPIDARIST Gender Identity Not on file Sexual Orientation Not on file documented as of this encounter Plan of Treatment Not on file documented as of this encounter Visit Diagnoses Not on filedocumented in this encounter
--- OUTSIDE RECORDS SUMMARY | 2024-12-21 10:33 | XMS_ITS | Encounter Summary ---
Author Organization [facility] Address [address] [place] [address] Phone Care Team Providers Care Can Feeder Name Role Phone Skyla Lan MD Primary Care Pro vider Arthur Wei MD Primary Care Provider [phone] [phone] Encounter Details Date Type Department Care Team (Late st Contact Info) Description 08/28/2017 Orders Only [facility] ProviderZhang MD [facility] [place] [address] Social History Tobacco Use Types Packs/Day Years Used Date Smoking Tobacco: Never Smokeless Tobacco: Never Alcohol Use Standard Drinks/Week Comments No 0 (1 standard drink = 0.6 oz pur e alcohol) Comments Unknown Sex and Gender Information Value Date Recorded Sex Assigned at Not on file Legal Sex Female 3:32 AM HEAVY EQUIPMENT SALES ASSOCIATE Gender Identity Not on file Sexual Orientation Not on file documented as of this encounter Plan of Treatment Not on file documented as of this encounter Procedures Procedure Name Priority Date/Time Associated Diagnosis Comments DISCHARGE LABORATORY CUMULATIVE REPORT 08/28/2017 12:00 AM CDT documented in this encounter Results * DISCHARGE LABORATORY CUMULATIVE REPORT (08/28/2017 12:00 AM CDT) Narrative 08/28/2017 12:00 AM CDT Ordered by an unspecified provider. us Historical Provider LAB BLOOD ORDERABLES Tammy l Result documented in this encounter Visit Diagnoses Not on filedocumented in this encounter Care Teams Can Feeder Relationship Specialty Start Date End Date Skyla Lan MD [address] [address] PCP - General Internal Medicine 08/28/17 12/15/19 Arthur Wei MD [address] [address] PCP - General Family Medicine 12/16/19 documented as of this encounter
--- OUTSIDE RECORDS SUMMARY | 2024-12-21 10:34 | XMS_ITS | Patient Health Record ---
Author Organization [facility] Address [address] [place] [address] Support Name Relationship Address Phone Tyra Briceño Guarantor Unknown [phone] Allergies No Known Allergies Reason For Referral No Information Medications Medication SIG (Take, Route, Frequency, Duration) Notes Start Date End Date Status Triamcinolone Acetonide 0.10% apply to affected area by external route 2 times a day hand External 2; Duration: 10/13/2017 Active Problems Problem Type SNOMED Code ICD Code Onset Dates Problem Status W/U Status Risk Notes Problem Candidiasis (90891743) Candidiasis, unspecified (B37.9) Active confirmed Plan Of Treatment No Information Insurance Providers Payer Name Payer Address Payer Phone Subscriber Number Group Number Insured Name Patient Relationship to Insured Coverage Start Date Coverage End Date DO NOT USE AR [id number] Tyra Briceño Self - patient is the insured [employer] [address] [place], [place] [id number] Tyra Briceño Self - patient is the insured
== END 2024-12-21 10:03 | disposition home or self-care (01) ==
PROVIDERS: PCP Family Medicine; Visit Provider Family Medicine
DX: G56.03 Carpal tunnel syndrome, bilateral upper limbs (principal); G56.21 Lesion of ulnar nerve, right upper limb
CPT/HCPCS: 95886; 95911